=== PATIENT | female | born 1955 | race Caucasian/White ===

== ENCOUNTER 2018-02-26 20:32 | Emergency (ER) | payer BC ==
[~2018-02-26] VITALS: Ht 167.6 cm; Wt 59.0 kg
[2018-02-26] MEDS ORDERED: diphenhydrAMINE 50 MG/1 ML VIAL ONE (21:02)
[2018-02-26] MEDS ORDERED: HYDROMORPHONE 1 MG/1 ML DISP.SYRIN ONE (21:02)
[2018-02-26] MEDS ORDERED: ONDANSETRON 4 MG/2 ML VIAL ONE (21:02)
[2018-02-26] MEDS ORDERED: PROCHLORPERAZINE EDISYLATE 10 MG/2 ML VIAL ONE (21:02)
[2018-02-26] MEDS: IV NORMAL SALINE 1000 ML BAG IV ONE (21:05)
[2018-02-26] MEDS: ONDANSETRON 4 MG/2 ML VIAL IV ONE (21:08)
[2018-02-26] MEDS: diphenhydrAMINE 50 MG/1 ML VIAL IV ONE (21:09)
[2018-02-26] MEDS: HYDROMORPHONE 1 MG/1 ML DISP.SYRIN IV ONE (21:09)
[2018-02-26] MEDS: PROCHLORPERAZINE EDISYLATE 10 MG/2 ML VIAL IV ONE (21:09)
--- NOTE | 2018-02-26 22:01 | NUR ---
IV removed. Catheter intact and site benign. Pressure and 4x4 gauze applied to site. No bleeding noted.
--- NOTE | 2018-02-26 22:03 | NUR ---
Patient discharged to home in stable conditon. Written and verbal after care instructions given. Patient verbalizes understanding of instructions. Pt left ER via wheelchair with daughter who will drive home. All belongings with pt. VSS. NAD noted.
[2018-02-26 22:06] VITALS: BP 121/64
== END 2018-02-26 22:06 | disposition home or self-care (01) ==
LOC: ER 20:34
DX: G43.909 Migraine, unspecified, not intractable, without status migrainosus (principal); Z71.6 Tobacco abuse counseling; F17.200 Nicotine dependence, unspecified, uncomplicated
CPT/HCPCS: A4663; J0780; J1170; J1200; J2405; J7030